=== PATIENT | male | born 1950 | race Caucasian/White ===

== ENCOUNTER → 2018-05-01 10:11 | Outpatient (CLI) | payer MEDICARE, BC, SELFPAY | PROVIDERS: PCP Nurse Practitioner Family; Visit Provider Student in an Organized Health Care Education/Training Program | DX: I48.91 Unspecified atrial fibrillation (principal) | CPT/HCPCS: 99204; 93005; 93010 ==

== ENCOUNTER → 2018-05-01 12:00 | Outpatient (CLI) | payer MEDICARE, BC, SELFPAY | PROVIDERS: PCP Nurse Practitioner Family; Referring Provider Nurse Practitioner Family; Visit Provider Student in an Organized Health Care Education/Training Program | DX: I48.2 Chronic atrial fibrillation (principal); R03.0 Elevated blood-pressure reading, without diagnosis of hypertension | CPT/HCPCS: 99204 ==

== ENCOUNTER → 2018-05-14 08:53 | Outpatient (CLI) | payer MEDICARE, BC, SELFPAY ==
--- NOTE | 2018-05-14 09:00 | MERGE_ITS ---
*[facility]* * Cardiology* [address] [place] [address] Date of study: 05/14/2018 Transthoracic Echocardiography M-mode, complete 2D, complete spectral Doppler, and color Doppler *STUDY CONCLUSIONS* Summary: 1. Left ventricle: The cavity size was normal. The estimated ejection fraction was 30%. Diffuse hypokinesis. Some parameters suggest diastolic dysfunction. There was no evidence of elevated ventricular filling pressure by Doppler parameters. No evidence of thrombus. 2. Aortic valve: There was mild regurgitation. 3. Mitral valve: There was moderate regurgitation. 4. Left atrium: The atrium was mildly dilated. 5. Right ventricle: The cavity size was normal. Wall thickness was normal. Systolic function was normal. 6. Atrial septum: No defect or patent foramen ovale was identified. 7. Tricuspid valve: There was moderate regurgitation. 8. Pulmonary arteries: Pulmonary systolic pressure was in the range of 15mm Hg to 25mm Hg. 9. Inferior vena cava: The vessel was patent and normal in size. The respirophasic diameter changes were in the normal range (greater than or equal to 50%), consistent with normal central venous pressure. *PATIENT PRESENTATION* Height: 180.3cm ((71in) ) S/D Pressure: 117 / 71 Weight: 85.3kg ((187.6lb) ) BSA: 2.08m^2 Test start time: 09:15 AM. Test stop time: 10:20 AM. PERFORMING Unknown ORDERING Jesus Arteaga REFERRING Jesus Arteaga PERFORMING [facility] SENIOR PAINTER RT Barrie (R)(CT)DARCIE *PROCEDURE DATA* Procedure information: This study was interpreted by [facility]. Pertinent images and digital data are archived for permanent storage and are available for subsequent review. No prior study was available for comparison. Study status: Routine. Transthoracic echocardiography. M-mode, complete 2D, complete spectral Doppler, and color Doppler. A Transthoracic Echocardiogram was performed. Scanning was performed from the parasternal, apical, subcostal, and suprasternal notch acoustic windows. Images were obtained using an [id number] cardiac ultrasound machine. Image quality was adequate. Study completion: The patient tolerated the procedure well. History: PMH: Afib *CARDIAC ANATOMY* Left ventricle: The cavity size was normal. The estimated ejection fraction was 30%. Diffuse hypokinesis. No evidence of thrombus. The tissue Doppler parameters were abnormal. Some parameters suggest diastolic dysfunction. There was no evidence of elevated ventricular filling pressure by Doppler parameters. Aortic valve: Trileaflet. Doppler: There was no stenosis. There was mild regurgitation. VTI ratio of LVOT to aortic valve: 0.7. Valve area (VTI): 2.5cm^2. Indexed valve area (VTI): 1.2cm^2/m^2. Peak velocity ratio of LVOT to aortic valve: 0.71. Valve area (Vmax): 2.5cm^2. Indexed valve area (Vmax): 1.2cm^2/m^2. Mean velocity ratio of LVOT to aortic valve: 0.66. Valve area (Vmean): 2.3cm^2. Indexed valve area (Vmean): 1.1cm^2/m^2. Mean gradient (S): 2.5mm Hg. Peak gradient (S): 3.7mm Hg. Aorta: Aortic root: The aortic root was normal in size. Ascending aorta: The ascending aorta was mildly dilated. Mitral valve: Doppler: There was no evidence for stenosis. There was moderate regurgitation. Valve area by pressure half-time: 3.8cm^2. Indexed valve area by pressure half-time: 1.8cm^2/m^2. Left atrium: The atrium was mildly dilated. Atrial septum: No defect or patent foramen ovale was identified. Right ventricle: The cavity size was normal. Wall thickness was normal. Systolic function was normal. Pulmonic valve: Doppler: There was no evidence for stenosis. There was mild regurgitation. Peak gradient (S): 1.2mm Hg. Tricuspid valve: Doppler: There was moderate regurgitation. Pulmonary artery: Poorly visualized. Pulmonary systolic pressure was in the range of 15mm Hg to 25mm Hg. Right atrium: The atrium was normal in size. Pericardium: There was no pericardial effusion. Systemic veins: Inferior vena cava: Well visualized. The vessel was patent and normal in size. The respirophasic diameter changes were in the normal range (greater than or equal to 50%), consistent with normal central venous pressure. Baseline ECG: Bradycardia. Measurements Left ventricle Value Reference LV ID, ED, PLAX (H) 6.1 cm 3.5 - 6.0 LV ID, ES, PLAX (H) 5.4 cm 2.1 - 4.0 LV PW thickness, ED, PLAX 1.1 cm LV end-diastolic volume, 1-p A2C 153 ml LV ejection fraction, 1-p A2C 23 % LV end-diastolic volume, 1-p A4C 160 ml LV ejection fraction, 1-p A4C 32 % LV e', lateral 0.084 m/sec LV E/e', lateral 6 LV e', medial 0.066 m/sec LV E/e', medial 8 LV e', average 0.075 m/sec LV E/e', average 7 Ventricular septum Value Reference IVS thickness, ED, PLAX 1.0 cm LVOT Value Reference LVOT ID, A-P 2.1 cm LVOT area 3.6 cm^2 LVOT peak velocity, S 0.69 m/sec LVOT mean velocity, S 0.5 m/sec LVOT VTI, S 12.8 cm LVOT peak gradient, S 1.9 mm Hg LVOT mean gradient, S 1.1 mm Hg Stroke volume (SV), LVOT DP 45 ml Stroke index (SV/bsa), LVOT DP 22 ml/m^2 Aortic valve Value Reference Aortic valve peak velocity, S 1 m/sec Aortic valve mean velocity, S 0.76 m/sec Aortic valve VTI, S 18.3 cm Aortic mean gradient, S 2.5 mm Hg Aortic peak gradient, S 3.7 mm Hg VTI ratio, LVOT/AV 0.7 Aortic valve area, VTI 2.5 cm^2 Velocity ratio, peak, LVOT/AV 0.71 Aortic valve area, peak velocity 2.5 cm^2 Velocity ratio, mean, LVOT/AV 0.66 Aortic valve area, mean velocity 2.3 cm^2 Aortic valve area/bsa, mean velocity 1.1 cm^2/m^2 Aorta Value Reference Aortic root ID, ED 3.5 cm Ascending aorta ID, A-P, S 3.9 cm RVOT Value Reference RVOT VTI, S 7.8 cm Left atrium Value Reference LA ID, A-P, ES 5.0 cm LA ID/bsa, A-P (H) 2.4 cm/m^2 <=2.2 LA area, ES, A4C (H) 26.9 cm^2 8.8 - 23.4 LA area, ES, A2C 28 cm^2 LA volume/bsa, ES, 1-p A4C 45 ml/m^2 LA volume, ES, 2-p 88 ml LA volume/bsa, ES, 2-p 42 ml/m^2 LA/aortic root ratio 1.41 Mitral valve Value Reference Mitral E-wave peak velocity 0.53 m/sec Mitral deceleration time 198 ms 150 - 230 Mitral pressure half-time 57 ms Mitral valve area, PHT, DP 3.8 cm^2 Mitral peak LV-LA gradient, S 95.6 mm Hg Mitral maximal regurg velocity, PISA 4.89 m/sec Mitral regurg VTI, PISA 186.3 cm Tricuspid valve Value Reference Tricuspid regurg peak velocity 2.1 m/sec Tricuspid peak RV-RA gradient 16.9 mm Hg Right atrium Value Reference RA area, ES, A4C 17.6 cm^2 8.3 - 19.5 Pulmonic valve Value Reference Pulmonic peak gradient, S 1.2 mm Hg Legend: (L) and (H) barry values outside specified reference range. I have personally reviewed the images and have reviewed and edited the reported findings. Electronically signed by Bashir Arthur MD 05/16/2018 16:47
== END ==
PROVIDERS: PCP Nurse Practitioner Family; Visit Provider Student in an Organized Health Care Education/Training Program
DX: I48.91 Unspecified atrial fibrillation (principal); I08.3 Combined rheumatic disorders of mitral, aortic and tricuspid valves
CPT/HCPCS: 93306

== ENCOUNTER 2018-08-12 12:29 | Outpatient (REF) | payer MEDICARE, BC, SELFPAY ==
[2018-08-12 21:10] LABS: BUN 29 mg/dL (7-18); CREATININE 1.69 mg/dL (0.70-1.30); Calcium 9.1 mg/dL (8.5-10.1); Chloride 105 mmol/L (98-107); Estimated GFR 40.44 (mL/min/1.73m2); Glucose 93 mg/dL (70-100); Potassium 4.4 mmol/L (3.5-5.1); Sodium 141 mmol/L (136-145)
[2018-08-14 11:46] LABS: Hepatitis C Ab w Rflx HCV PCR Negative (NEGAT)
== END 2018-08-12 12:49 ==
LOC: NCHCN 12:29
PROVIDERS: PCP Nurse Practitioner Family; Visit Provider Nurse Practitioner Family
DX: N18.2 Chronic kidney disease, stage 2 (mild) (principal); I48.91 Unspecified atrial fibrillation; R42 Dizziness and giddiness; I50.9 Heart failure, unspecified; Z11.59 Encounter for screening for other viral diseases
CPT/HCPCS: 80048; 86803

== ENCOUNTER 2019-02-07 10:40 | Outpatient (REF) | payer MEDICARE, BC, SELFPAY ==
[2019-02-07 13:05] LABS: Anion Gap 11.7 mmol/L (3-11); BUN 26 mg/dL (7-18); CO2 23.3 mmol/L (21.0-32.0); CREATININE 1.46 mg/dL (0.70-1.30); Calcium 8.4 mg/dL (8.5-10.1); Chloride 103 mmol/L (98-107); Estimated GFR 47.87 (mL/min/1.73m2); Glucose 87 mg/dL (70-100); Potassium 4.5 mmol/L (3.5-5.1); Sodium 138 mmol/L (136-145)
== END 2019-02-07 11:00 ==
LOC: NCHCN 10:40
PROVIDERS: PCP Nurse Practitioner Family; Visit Provider Nurse Practitioner Family
DX: I48.91 Unspecified atrial fibrillation (principal); N18.3 Chronic kidney disease, stage 3 (moderate)
CPT/HCPCS: 80048

== ENCOUNTER 2019-08-06 10:20 | Outpatient (REF) | payer MEDICARE, BC, SELFPAY ==
[2019-08-06 12:41] LABS: Anion Gap 9.3 mmol/L (3-11); BUN 28 mg/dL (7-18); CO2 24.7 mmol/L (21.0-32.0); CREATININE 1.47 mg/dL (0.70-1.30); Calcium 9.1 mg/dL (8.5-10.1); Chloride 109 mmol/L (98-107); Estimated GFR 47.36 (mL/min/1.73m2); Glucose 102 mg/dL (74-106); Potassium 4.5 mmol/L (3.5-5.1); Sodium 143 mmol/L (136-145)
== END 2019-08-06 10:40 ==
LOC: NCHCN 10:20
PROVIDERS: PCP Nurse Practitioner Family; Visit Provider Nurse Practitioner Family
DX: N18.2 Chronic kidney disease, stage 2 (mild) (principal); G60.9 Hereditary and idiopathic neuropathy, unspecified; I34.0 Nonrheumatic mitral (valve) insufficiency
CPT/HCPCS: 80048

== ENCOUNTER 2020-02-11 17:49 | Outpatient (REF) | payer MEDICARE, BC, SELFPAY ==
[2020-02-11 21:44] LABS: Anion Gap 5.1 mmol/L (3-11); BUN 21 mg/dL (7-18); CO2 28.9 mmol/L (21.0-32.0); CREATININE 1.67 mg/dL (0.70-1.30); Calcium 9.1 mg/dL (8.5-10.1); Calculated LDL 83 mg/dL (<100); Chloride 107 mmol/L (98-107); Cholesterol 139 mg/dL (<200); Estimated GFR 40.88 (mL/min/1.73m2); Glucose 106 mg/dL (74-106); HDL Cholesterol 49 mg/dL (40-60); Potassium 4.5 mmol/L (3.5-5.1); Sodium 141 mmol/L (136-145); Triglyceride 37 mg/dL (<150)
== END 2020-02-11 18:09 ==
LOC: NCHCN 17:49
PROVIDERS: PCP Nurse Practitioner Family; Visit Provider Nurse Practitioner Family
DX: N18.2 Chronic kidney disease, stage 2 (mild) (principal); R79.89 Other specified abnormal findings of blood chemistry
CPT/HCPCS: 80048; 80061

== ENCOUNTER 2020-05-21 16:20 | Outpatient (REF) | payer MEDICARE, BC, SELFPAY ==
[2020-05-21 21:39] LABS: Anion Gap 8.5 mmol/L (3-11); BUN 23 mg/dL (7-18); CO2 26.5 mmol/L (21.0-32.0); CREATININE 1.66 mg/dL (0.70-1.30); Calcium 9.3 mg/dL (8.5-10.1); Chloride 107 mmol/L (98-107); Estimated GFR 41.16 (mL/min/1.73m2); Glucose 82 mg/dL (74-106); Potassium 4.5 mmol/L (3.5-5.1); Sodium 142 mmol/L (136-145)
== END 2020-05-21 16:40 ==
LOC: NCHCN 16:20
PROVIDERS: PCP Nurse Practitioner Family; Visit Provider Nurse Practitioner Family
DX: N18.2 Chronic kidney disease, stage 2 (mild) (principal)
CPT/HCPCS: 80048

== ENCOUNTER 2021-05-17 13:10 | Outpatient (REF) | payer MEDICARE, BC, SELFPAY ==
[2021-05-17 15:03] LABS: Anion Gap 9.3 mmol/L (3-11); BUN 25 mg/dL (7-18); CO2 27.7 mmol/L (21.0-32.0); CREATININE 1.7 mg/dL (0.70-1.30); Calcium 9.3 mg/dL (8.5-10.1); Calculated LDL 99 mg/dL (<100); Chloride 107 mmol/L (98-107); Cholesterol 155 mg/dL (<200); Estimated GFR 39.93 (mL/min/1.73m2); Glucose 99 mg/dL (74-106); HDL Cholesterol 47 mg/dL (40-60); Potassium 4.8 mmol/L (3.5-5.1); Sodium 144 mmol/L (136-145); Triglyceride 45 mg/dL (<150)
== END 2021-05-17 13:11 | disposition home or self-care (01) ==
LOC: NCHCN 13:10
PROVIDERS: PCP Nurse Practitioner Family; Visit Provider Nurse Practitioner Family
DX: Z00.00 Encounter for general adult medical examination without abnormal findings (principal); N18.2 Chronic kidney disease, stage 2 (mild)
CPT/HCPCS: 80048; 80061

== ENCOUNTER 2021-06-28 00:54 | Outpatient (CLI) | payer MEDICARE, BC, SELFPAY ==
--- NOTE | 2021-06-28 | DI.US_ITS ---
APPROVED REPORT EXAM: Comprehensive 2D, Doppler, and color-flow Echocardiogram Patient Location: Out-Patient Air Conditioning Manager: Italia Hagan RDCS (AE) Indications: Tricuspid regurgitation, Mitral regurgitation, Aortic insufficiency, Atrial Fibrillation , Low EF Other Information Study Quality: Good Conclusion Mildly dilated left ventricle. Normal left ventricular wall thickness. Reduced left ventricular sys tolic function, EF 30% with global hypokinesis Mildly dilated right ventricle with normal systolic function Both atria are severely dilated Trileaflet mildly sclerotic aortic valve with trace to mild regurgitation Thickened mitral leaflets with mild to moderate regurgitation Normal tricuspid valve with mild regurgitation. Normal estimated right ventricular systolic pressure , 22.8 mmHg Moderately dilated ascending aorta measuring 4.02 cm Wall motion Left Ventricle Left ventricle is mildly dilated. Left ventricular systolic function is moderately decreased. There i s normal left ventricular wall thickness. There is global hypokinesis of the left ventricle. There is no ventricular septal defect visualized. LVEF is 30%. Right Ventricle Right ventricle is mildly dilated. The right ventricular systolic function is normal. The RVSP is 22. 8 mmHg. Atria Left atrium is severely dilated. Right atrium is severely dilated. The interatrial septum is intact w ith no evidence for an atrial septal defect. Aortic Valve The Aortic valve is mildly sclerotic. Aortic valve is trileaflet. There is no aortic valvular stenosi s. Trace to mild aortic regurgitation. Mitral Valve Mitral valve leaflets are thickened. No evidence of mitral valve stenosis. Mild to moderate mitral re gurgitation. Tricuspid Valve The tricuspid valve is normal in structure. There is no tricuspid valve stenosis. Mild tricuspid regu rgitation. Pulmonic Valve The pulmonary valve is normal in structure. There is no pulmonic valvular stenosis. Trace pulmonic re gurgitation. Great Vessels The aortic root is normal in size. The ascending aorta is moderately dilated. Aortic arch is normal i n caliber. The IVC collapses <50% with inspiration. Pericardium There is no pericardial effusion. 2D Dimensions IVSD d PLAX 0.92 cm M: 0.6-1.2 LV Vol A2C d MOD 144.3 mL LVPW d PLAX 0.93 cm M: 0.6 - 1.2 LV Vol A4C d MOD 149.7 mL LVID d PLAX 6.21 cm M: 4.2 - 5.8 LA vol/ BSA A2C s A-L 46.7 mL/m2 LVDs 5.20 cm M: 2.5 - 4.0 LA vol/ BSA A4C s A-L 40.9 mL/m2 Ao Root d 3.26 cm M: 3.1 - 3.7 LA Vol/ BSA Biplane s A-L 45.3 mL/m2 RA Area A4C 19.66 cm2 LA Area A4C s MOD 25.52 cm2 RA Vol/ BSA A4C s A-L 32.7 mL/m2 LA Area A2C s MOD 26.30 cm2 Ao Asc Diam d 4.02 cm M: 2.6 - 3.4 LV EF A4C MOD 30.1 % LV EF Teichholz 32.0 % LV EF A2C MOD 30.8 % LVEF (Sandra's) 29.67 % M: 52 - 72 LV EF Biplane MOD 29.7 % LV Volume 110.77 mL M: 62 - 150 SV 43.96 mL LV Volume Index 54.83 mL/m2 M: 34 - 74 SV Index 21.77 mL/m2 LV Vol Biplane MOD 148.2 mL FS 15.45 % M-Mode TAPSE 1.85 cm (M/F) >1.7 LV Diastology MV E' medial 0.062 (>0.07 m/s) MV E Vmax 0.76 (0.4-1.3 m/s) LV E/e MED 12.30 (<14) MV E' lateral 0.097 (>0.1 m/s) LV E/e LAT 7.85 (<14) MV E/E' medial 12.34 MV E/E' lateral 7.88 Aortic Valve LVOT Area 3.83 cm2 AoV Area Vmax 2.94 cm2 LVOT Vmax 0.90 m/s AoV Area/ BSA (Vmax) 1.45 cm2/m2 LVOT Mean Chuy. 0.64 m/s MYA Mean Chuy. 2.74 cm2 LVOT Peak Grad 3.2 mmHg MYA Mean Chuy. Index 1.35 cm2/m2 LVOT Mean Grad 1.9 mmHg AR DT 3153 msec LVOT VTI 0.186 m AR PHT 914 msec LVOT Diam s 2.20 cm AoV Vmax 1.17 m/s Velocity Ratio 0.76 AoV Mean Chuy. 0.90 m/s AoV Peak Grad 5.5 mmHg LVOT SV 71.08 mL AoV Mean Grad 3.5 mmHg AoV VTI 0.256 m AoV Area VTI 2.77 cm2 AoV Area/ BSA (VTI) 1.37 cm/m2 Mitral Valve MV DT 227 (160-240 msec) MR Vmax 4.45 m/s MV PHT 66 msec MR VTI 1.510 m MV Area PHT 3.35 cm2 MR Peak Grad 79.2 mmHg MV VTI 0.201 m MR Mean Grad 52.6 mmHg MV Area VTI 3.54 (4.0-6.0 cm2) MR PISA Radius 0.63 cm MR EROA 0.19 cm2 MR Aliasing Velocity 0.35 m/s MR PISA 2.46 cm2 Pulmonary Valve PV Vmax 0.68 (0.5-1.5 m/s) RVOT Peak Gr. 0.99 mmHg PV Peak Grad 1.8 mmHg RVOT Mean Gr. 0.45 mmHg PV Mean Grad 1.1 mmHg RVOT VTI 0.087 m PV VTI 0.144 m RVOT Vmax 0.50 m/s Tricuspid Valve TR Peak Grad 14.8 mmHg TR Vmax 1.93 m/s RA Pressure 8.00 mmHg RVSP (TR) 22.8 mmHg
== END 2021-06-28 01:14 ==
PROVIDERS: PCP Nurse Practitioner Family; Visit Provider Nurse Practitioner Family
DX: I08.3 Combined rheumatic disorders of mitral, aortic and tricuspid valves (principal); I48.91 Unspecified atrial fibrillation; I50.1 Left ventricular failure, unspecified; I77.810 Thoracic aortic ectasia
CPT/HCPCS: 93306

== ENCOUNTER 2021-08-05 12:55 | Outpatient (CLI) | payer MEDICARE, BC, SELFPAY ==
--- NOTE | 2021-08-05 13:15 | RT.EKG_ITS ---
APPROVED REPORT Exam: Resting ECG Reason for Exam: New Patient Office Visit Patient Location: O HR:93 bpm ECG Measurements Heart Rate 93 AXIS NC [id number] P [id number] QRSd 96 QRS 4 QT 377 T [id number] QTc 469 Conclusion Atrial fibrillation...V-rate 73-127, irreg A-activity Low voltage, extremity leads...all extremity leads <0.5mV
== END 2021-08-05 12:56 | disposition home or self-care (01) ==
LOC: DI.CARD 13:20
PROVIDERS: PCP Nurse Practitioner Family; Referring Provider Nurse Practitioner Family; Visit Provider Internal Medicine Cardiovascular Disease
DX: R93.1 Abnormal findings on diagnostic imaging of heart and coronary circulation (principal)
CPT/HCPCS: 93010

== ENCOUNTER → 2021-08-05 12:55 | Outpatient (BNVA) | payer MEDICARE, BC, SELFPAY | PROVIDERS: PCP Nurse Practitioner Family; Referring Provider Nurse Practitioner Family; Visit Provider Internal Medicine Cardiovascular Disease | DX: I48.21 Permanent atrial fibrillation (principal); R93.1 Abnormal findings on diagnostic imaging of heart and coronary circulation; I42.9 Cardiomyopathy, unspecified | CPT/HCPCS: 93005; 99203 ==

== ENCOUNTER → 2022-05-30 02:20 | Outpatient (CLI) | payer MEDICARE, SELFPAY ==
--- NOTE | 2022-05-30 07:45 | DI.US_ITS ---
Exam(s) US LOWER EXTREMITY VENOUS RT EXAM: US LOWER EXTREMITY VENOUS RT CLINICAL HISTORY: right leg swelling.m79.89. TECHNIQUE: Lower extremity venous ultrasound performed using grayscale, color-flow, and spectral Do ppler analysis. COMPARISON: No exams were available for comparison FINDINGS: The common femoral, femoral and popliteal veins demonstrate normal compressibility, augmentation, and color Doppler. The posterior tibial veins are patent. No saphenous vein thrombosis or other superfi cial venous thrombosis is seen. There is edema in the subcutaneous fat. There is a hypoechoic colle ction measuring 14.5 cm in length by 2.3 cm AP by 3.5 cm transverse. It extends from the popliteal f garret through the calf region. It may represent a hematoma versus Hobbs's cyst with hemorrhage or jackie ris.. IMPRESSION: Hypoechoic collection in the calf represent Hobbs's cyst versus hematoma. No evidence of DVT. DATA REPOSITORY:
== END ==
PROVIDERS: PCP Nurse Practitioner Family; Visit Provider Physician Assistant
DX: M79.89 Other specified soft tissue disorders (principal)
CPT/HCPCS: 93971

== ENCOUNTER 2022-05-30 03:50 | Outpatient (CLI) | payer MEDICARE, SELFPAY ==
[2022-05-30 14:42] LABS: Abs Immature Grans 0.02 10^3/uL (0.0-0.06); Absolute Basophil Count 0.05 10^3/uL (0.0-0.2); Absolute Lymphocyte Count 1.98 10^3/uL (1.2-3.4); Absolute Monocyte Count 1.18 10^3/uL (0.1-0.8); Absolute Neutrophil Count 6.54 10^3/uL (1.2-6.7); Basophils % 0.5; HCT 39.7 % (40.0-50.0); Immature Grans % 0.2; Lymphocytes % 20.1; MCH 31.6 pg (27.0-33.0); MCHC 32.7 % (32.0-36.0); MCV 96 fL (80-95); MPV 10.7 fL (8.0-11.0); Neutrophils % 66.2; Platelet Count 281 10^3/uL (130-400); RBC 4.12 10^6/uL (4.36-5.78); RDW 13.2 % (11.8-14.1); WBC 9.87 10^3/uL (4.4-10.8)
[2022-05-30 14:55] LABS: Prothrombin Time 10.4 sec (9.3-11.0)
[2022-05-30 15:52] LABS: ALT 23 U/L (16-63); AST 22 U/L (15-37); Albumin 2.8 g/dL (3.4-5.0); Alkaline Phosphatase 58 U/L (46-116); Anion Gap 7.5 mmol/L (3-11); BUN 30 mg/dL (7-18); Bilirubin, Total 1.3 mg/dL (0.2-1.0); CO2 27.5 mmol/L (21.0-32.0); CREATININE 1.6 mg/dL (0.70-1.30); Calcium 8.7 mg/dL (8.5-10.1); Chloride 105 mmol/L (98-107); Glucose 107 mg/dL (74-106); Potassium 4.1 mmol/L (3.5-5.1); Sodium 140 mmol/L (136-145); Total Protein 7.6 g/dL (6.4-8.2)
== END 2022-05-30 03:51 | disposition home or self-care (01) ==
LOC: LBO 03:50
PROVIDERS: PCP Nurse Practitioner Family; Visit Provider Physician Assistant
DX: M79.89 Other specified soft tissue disorders (principal)
CPT/HCPCS: 36415; 80053; 85025; 85610; 85730

== ENCOUNTER 2022-06-30 15:14 | Outpatient (REF) | payer MEDICARE, SELFPAY ==
[2022-06-30 15:42] LABS: Abs Immature Grans 0.01 10^3/uL (0.0-0.06); Absolute Basophil Count 0.03 10^3/uL (0.0-0.2); Absolute Eosinophil Count 0.25 10^3/uL (0.0-0.7); Absolute Lymphocyte Count 1.72 10^3/uL (1.2-3.4); Absolute Monocyte Count 0.37 10^3/uL (0.1-0.8); Basophils % 0.5; Eosinophils % 4.3; HCT 35.7 % (40.0-50.0); HGB 11.5 g/dL (13.5-17.5); Immature Grans % 0.2; Lymphocytes % 29.8; MCH 30.7 pg (27.0-33.0); MCHC 32.2 % (32.0-36.0); MCV 95 fL (80-95); MPV 11.9 fL (8.0-11.0); Monocytes % 6.4; Neutrophils % 58.8; Platelet Count 204 10^3/uL (130-400); RBC 3.75 10^6/uL (4.36-5.78); RDW 12.9 % (11.8-14.1); RDW-SD 45.3 fL; WBC 5.78 10^3/uL (4.4-10.8)
[2022-06-30 15:54] LABS: Anion Gap 6.4 mmol/L (3-11); BUN 30 mg/dL (7-18); CO2 25.6 mmol/L (21.0-32.0); CREATININE 1.5 mg/dL (0.70-1.30); Calcium 8.4 mg/dL (8.5-10.1); Chloride 104 mmol/L (98-107); Estimated GFR 49.16 (mL/min/1.73m2); Glucose 111 mg/dL (74-106); NT-proBNP 5383 pg/mL (<300); Potassium 4.2 mmol/L (3.5-5.1); Sodium 136 mmol/L (136-145)
== END 2022-06-30 15:15 | disposition home or self-care (01) ==
LOC: NCHCN 15:14
PROVIDERS: PCP Nurse Practitioner Family; Visit Provider Nurse Practitioner Family
DX: R06.02 Shortness of breath (principal); I42.9 Cardiomyopathy, unspecified; R60.0 Localized edema; I35.1 Nonrheumatic aortic (valve) insufficiency; I89.0 Lymphedema, not elsewhere classified; I48.91 Unspecified atrial fibrillation
CPT/HCPCS: 80048; 83880; 85025

== ENCOUNTER → 2022-07-05 01:39 | Outpatient (CLI) | payer MEDICARE, SELFPAY ==
--- NOTE | 2022-07-05 14:00 | DI.US_ITS ---
APPROVED REPORT EXAM: Comprehensive 2D, Doppler, and color-flow Echocardiogram Patient Location: Out-Patient Tacker Elastic Band: Italia Hagan RDCS (AE) Indications: SOB, CMP, Lymphedema, Dilated aorta, Murmur Other Information Study Quality: Adequate Conclusion Mildly dilated left ventricle. Normal left ventricular wall thickness. Estimated ejection fraction is 30% with global hypokinesis The right ventricle is mildly dilated. Right ventricular function appears normal Both atria are moderately dilated The aortic valve is mildly sclerotic and trileaflet with trace regurgitation Mildly thickened mitral leaflets. Moderate mitral regurgitation Normal tricuspid valve with moderate regurgitation. Estimated right ventricular systolic pressure is 24 mmHg The ascending aorta was not well visualized Compared to echocardiogram from 2020 there is no significant change Wall motion Left Ventricle Left ventricle is mildly dilated. Left ventricular systolic function is moderately decreased. There i s normal left ventricular wall thickness. There is global hypokinesis of the left ventricle. There is no ventricular septal defect visualized. LVEF is 30%. Right Ventricle Right ventricle is mildly dilated. The right ventricular systolic function is normal. Atria Left atrium is moderately dilated. Right atrium is moderately dilated. Aortic Valve The Aortic valve is sclerotic. Aortic valve is trileaflet. There is no aortic valvular stenosis. Trac e aortic regurgitation. Mitral Valve Mitral valve leaflets are thickened. No evidence of mitral valve stenosis. Moderate mitral regurgitat ion. Tricuspid Valve The tricuspid valve is normal in structure. There is no tricuspid valve stenosis. Mioderate tricuspid regurgitation. Pulmonic Valve The pulmonary valve is normal in structure. There is no pulmonic valvular stenosis. Trace pulmonic re gurgitation. Great Vessels The aortic root is normal in size. Ascending aorta is not well visualized. Aortic arch is not well vi sualized. IVC is normal in size and collapses >50% with inspiration. Pericardium There is no pericardial effusion. 2D Dimensions IVSD d PLAX 0.92 cm M: 0.6-1.2 LV Vol A2C d MOD 197.8 mL LVPW d PLAX 0.93 cm M: 0.6 - 1.2 LV Vol A4C d MOD 180.8 mL LVID d PLAX 6.22 cm M: 4.2 - 5.8 LA vol/ BSA A2C s A-L 54.9 mL/m2 LVDs 5.35 cm M: 2.5 - 4.0 LA vol/ BSA A4C s A-L 46.5 mL/m2 Ao Root d 3.40 cm M: 3.1 - 3.7 LA Vol/ BSA Biplane s A-L 53.3 mL/m2 RA Area A4C 17.77 cm2 LA Area A4C s MOD 25.51 cm2 RA Vol/ BSA A4C s A-L 28.4 mL/m2 LA Area A2C s MOD 26.27 cm2 LV EF Teichholz 28.4 % LV EF A4C MOD 30.2 % LVEF (Sandra's) 28.63 % M: 52 - 72 LV EF A2C MOD 30.9 % LV Volume 147.29 mL M: 62 - 150 LV EF Biplane MOD 28.6 % LV Volume Index 76.31 mL/m2 M: 34 - 74 SV 55.53 mL LV Vol Biplane MOD 194.0 mL SV Index 28.80 mL/m2 FS 13.55 % M-Mode TAPSE 1.84 cm (M/F) >1.7 LV Diastology MV E' lateral 0.128 (>0.1 m/s) MV E Vmax 0.99 (0.4-1.3 m/s) LV E/e LAT 7.70 (<14) MV E/E' lateral 7.72 Aortic Valve LVOT Area 3.31 cm2 AoV Area Vmax 2.31 cm2 LVOT Vmax 0.84 m/s AoV Area/ BSA (Vmax) 1.20 cm2/m2 LVOT Mean Chuy. 0.66 m/s MYA Mean Chuy. 2.33 cm2 LVOT Peak Grad 2.8 mmHg MYA Mean Chuy. Index 1.21 cm2/m2 LVOT Mean Grad 1.9 mmHg AR DT 5279 msec LVOT VTI 0.155 m AR PHT 1531 msec LVOT Diam s 2.05 cm AoV Vmax 1.20 m/s Velocity Ratio 0.70 AoV Mean Chuy. 0.93 m/s AoV Peak Grad 5.8 mmHg LVOT SV 51.25 mL AoV Mean Grad 3.7 mmHg AoV VTI 0.210 m AoV Area VTI 2.44 cm2 AoV Area/ BSA (VTI) 1.26 cm/m2 Mitral Valve MV DT 162 (160-240 msec) MR Vmax 4.23 m/s MV PHT 47 msec MR VTI 1.154 m MV Area PHT 4.70 cm2 MR Peak Grad 71.5 mmHg MV VTI 0.253 m MR Mean Grad 43.3 mmHg MV Area VTI 2.02 (4.0-6.0 cm2) Pulmonary Valve PV Vmax 0.72 (0.5-1.5 m/s) RVOT Peak Gr. 1.25 mmHg PV Peak Grad 2.1 mmHg RVOT Mean Gr. 0.55 mmHg PV Mean Grad 1.1 mmHg RVOT VTI 0.091 m PV VTI 0.112 m RVOT Vmax 0.56 m/s Tricuspid Valve TR Peak Grad 21.4 mmHg TR Vmax 2.32 m/s RA Pressure 3.00 mmHg RVSP (TR) 24.5 mmHg
== END ==
PROVIDERS: PCP Nurse Practitioner Family; Visit Provider Nurse Practitioner Family
DX: R06.02 Shortness of breath (principal); I42.9 Cardiomyopathy, unspecified; I34.0 Nonrheumatic mitral (valve) insufficiency; I35.1 Nonrheumatic aortic (valve) insufficiency; R01.1 Cardiac murmur, unspecified
CPT/HCPCS: 93306

== ENCOUNTER 2022-07-11 13:51 | Outpatient (REF) | payer MEDICARE, SELFPAY ==
[2022-07-11 17:26] LABS: Anion Gap 7.9 mmol/L (3-11); BUN 26 mg/dL (7-18); CO2 26.1 mmol/L (21.0-32.0); CREATININE 1.6 mg/dL (0.70-1.30); Chloride 104 mmol/L (98-107); Glucose 89 mg/dL (74-106); Potassium 4.4 mmol/L (3.5-5.1); Sodium 138 mmol/L (136-145)
== END 2022-07-11 13:52 | disposition home or self-care (01) ==
LOC: NCHCN 13:51
PROVIDERS: PCP Nurse Practitioner Family; Visit Provider Nurse Practitioner Family
DX: N18.2 Chronic kidney disease, stage 2 (mild) (principal); I50.9 Heart failure, unspecified; Z90.5 Acquired absence of kidney
CPT/HCPCS: 80048

== ENCOUNTER → 2022-08-04 09:23 | Outpatient (BNVA) | payer MEDICARE, SELFPAY | PROVIDERS: PCP Nurse Practitioner Family; Referring Provider Nurse Practitioner Family; Visit Provider Internal Medicine Cardiovascular Disease | DX: I48.21 Permanent atrial fibrillation (principal); I42.9 Cardiomyopathy, unspecified; Z79.01 Long term (current) use of anticoagulants | CPT/HCPCS: 99214 ==

== ENCOUNTER 2022-10-06 11:10 | Outpatient (REF) | payer MEDICARE, SELFPAY ==
[2022-10-06 14:00] LABS: Abs Immature Grans 0.02 10^3/uL (0.0-0.06); Absolute Basophil Count 0.05 10^3/uL (0.0-0.2); Absolute Eosinophil Count 0.15 10^3/uL (0.0-0.7); Absolute Lymphocyte Count 2.13 10^3/uL (1.2-3.4); Absolute Monocyte Count 0.47 10^3/uL (0.1-0.8); Absolute Neutrophil Count 3.84 10^3/uL (1.2-6.7); Basophils % 0.8; Eosinophils % 2.3; HCT 43.1 % (40.0-50.0); HGB 13.9 g/dL (13.5-17.5); Immature Grans % 0.3; MCHC 32.3 % (32.0-36.0); MCV 96 fL (80-95); Monocytes % 7.1; Neutrophils % 57.5; Platelet Count 213 10^3/uL (130-400); RBC 4.49 10^6/uL (4.36-5.78); RDW 14.3 % (11.8-14.1); RDW-SD 50.9 fL; WBC 6.66 10^3/uL (4.4-10.8)
[2022-10-06 14:25] LABS: Iron 92 ug/dL (65-175); Total Iron Binding Capacity 250 ug/dL (250-450); Transferrin Sat 37 % (20-55)
[2022-10-06 14:35] LABS: ALT 18 U/L (16-63); AST 21 U/L (15-37); Albumin 3.7 g/dL (3.4-5.0); Alkaline Phosphatase 71 U/L (46-116); Anion Gap 8.4 mmol/L (3-11); BUN 34 mg/dL (7-18); Bilirubin, Total 1.3 mg/dL (0.2-1.0); CO2 27.6 mmol/L (21.0-32.0); CREATININE 1.7 mg/dL (0.70-1.30); Calcium 9.3 mg/dL (8.5-10.1); Chloride 105 mmol/L (98-107); Estimated GFR 42.04 (mL/min/1.73m2); Ferritin 105 ng/mL (26-388); Glucose 98 mg/dL (74-106); Potassium 4.3 mmol/L (3.5-5.1); Sodium 141 mmol/L (136-145); Total Protein 7.7 g/dL (6.4-8.2)
== END 2022-10-06 11:11 | disposition home or self-care (01) ==
LOC: NCHCN 11:10
PROVIDERS: PCP Nurse Practitioner Family; Visit Provider Nurse Practitioner Family
DX: D64.9 Anemia, unspecified (principal); I48.91 Unspecified atrial fibrillation; G60.9 Hereditary and idiopathic neuropathy, unspecified; N18.2 Chronic kidney disease, stage 2 (mild); I50.9 Heart failure, unspecified
CPT/HCPCS: 80053; 82728; 83540; 83550; 85025

== ENCOUNTER 2023-04-09 15:38 | Outpatient (REF) | payer MEDICARE, SELFPAY ==
[2023-04-09 21:24] LABS: Anion Gap 10.4 mmol/L (3-11); BUN 37 mg/dL (7-18); CO2 24.6 mmol/L (21.0-32.0); CREATININE 1.8 mg/dL (0.70-1.30); Calcium 9.1 mg/dL (8.5-10.1); Chloride 107 mmol/L (98-107); Estimated GFR 39.25 (mL/min/1.73m2); Glucose 137 mg/dL (74-106); Potassium 4.2 mmol/L (3.5-5.1); Sodium 142 mmol/L (136-145)
== END 2023-04-09 15:39 | disposition home or self-care (01) ==
LOC: NCHCN 15:38
PROVIDERS: PCP Nurse Practitioner Family; Visit Provider Nurse Practitioner Family
DX: D64.9 Anemia, unspecified (principal); N18.2 Chronic kidney disease, stage 2 (mild); G60.9 Hereditary and idiopathic neuropathy, unspecified; I50.9 Heart failure, unspecified; I42.9 Cardiomyopathy, unspecified
CPT/HCPCS: 80048

== ENCOUNTER → 2023-05-03 03:19 | Outpatient (CLI) | payer MEDICARE, SELFPAY ==
--- NOTE | 2023-05-03 13:01 | DI.US_ITS ---
Exam(s) US RENAL EXAM: US RENAL CLINICAL HISTORY: CHRONIC KIDNEY DISEASE,N18.2,H/O RT NEPHRECTOMY,Z90.5. TECHNIQUE: Cox scale, color and spectral Doppler were used. COMPARISON: No exams were available for comparison FINDINGS: Renal size in cm: Right: Status post right nephrectomy. Left: 15.5 x 6 x 9 x 4.8 Echogenicity: Normal Hydronephrosis: Question of mild hydronephrosis. Cyst or mass: 4.5 centimeter cyst mid left kidney. Nephrolithiasis: No Bladder:Normal Prevoid vol:661 cc Postvoid vol:172 cc Prostate volume 53 cc. IMPRESSION: Status post right nephrectomy. Question mild left hydronephrosis. Distended urinary bladder. Elevated postvoid residual volume. Enlarged prostate. DATA REPOSITORY:
== END ==
PROVIDERS: PCP Nurse Practitioner Family; Visit Provider Nurse Practitioner Family
DX: N18.32 Chronic kidney disease, stage 3b (principal); Z90.5 Acquired absence of kidney
CPT/HCPCS: 76770

== ENCOUNTER 2023-10-11 13:47 | Outpatient (REF) | payer MEDICARE, SELFPAY ==
[2023-10-11 14:50] LABS: Abs Immature Grans 0.01 10^3/uL (0.0-0.06); Absolute Basophil Count 0.06 10^3/uL (0.0-0.2); Absolute Eosinophil Count 0.36 10^3/uL (0.0-0.7); Absolute Lymphocyte Count 2.11 10^3/uL (1.2-3.4); Absolute Monocyte Count 0.68 10^3/uL (0.1-0.8); Basophils % 0.9; Eosinophils % 5.2; HCT 45.4 % (40.0-50.0); HGB 15.1 g/dL (13.5-17.5); Immature Grans % 0.1; Lymphocytes % 30.5; MCH 31.7 pg (27.0-33.0); MCHC 33.3 % (32.0-36.0); MCV 95 fL (80-95); MPV 12.2 fL (8.0-11.0); Monocytes % 9.8; Neutrophils % 53.5; Platelet Count 212 10^3/uL (130-400); RBC 4.77 10^6/uL (4.36-5.78); RDW 13.2 % (11.8-14.1); RDW-SD 46.7 fL; WBC 6.92 10^3/uL (4.4-10.8)
[2023-10-11 15:04] LABS: Iron 128 ug/dL (65-175); Total Iron Binding Capacity 262 ug/dL (250-450); Transferrin Sat 49 % (20-55)
[2023-10-11 15:15] LABS: ALT 23 U/L (16-63); AST 21 U/L (15-37); Albumin 3.8 g/dL (3.4-5.0); Alkaline Phosphatase 75 U/L (46-116); Anion Gap 8.9 mmol/L (3-11); BUN 25 mg/dL (7-18); Bilirubin, Total 1.9 mg/dL (0.2-1.0); CO2 28.1 mmol/L (21.0-32.0); CREATININE 1.6 mg/dL (0.70-1.30); Calcium 9.5 mg/dL (8.5-10.1); Chloride 106 mmol/L (98-107); Estimated GFR 44.93 (mL/min/1.73m2); Ferritin 135 ng/mL (26-388); Glucose 109 mg/dL (74-106); Potassium 4.5 mmol/L (3.5-5.1); Sodium 143 mmol/L (136-145); Total Protein 7.9 g/dL (6.4-8.2)
== END 2023-10-11 13:48 | disposition home or self-care (01) ==
LOC: NCHCN 13:47
PROVIDERS: PCP Nurse Practitioner Family; Visit Provider Nurse Practitioner Family
DX: N18.2 Chronic kidney disease, stage 2 (mild) (principal)
CPT/HCPCS: 80053; 82728; 83540; 83550; 85025

== ENCOUNTER 2024-05-22 02:42 | Outpatient (CLI) | payer MEDICARE, SELFPAY ==
--- NOTE | 2024-05-22 | DI.US_ITS ---
Exam(s) US RENAL EXAM: US RENAL CLINICAL HISTORY: CKD stage III, N18.30. TECHNIQUE: Cox scale, color and spectral Doppler were used. COMPARISON: US US RENAL from 05/03/2023 FINDINGS: Renal size in cm: Right: Status post right nephrectomy.. Left: 11.2. Echogenicity: Normal. Hydronephrosis: There is mild dilatation of the left renal collecting system. Cyst or mass: There is again seen a simple cyst in the left kidney. It measures 5.8 x 5.3 x 4.5 cm. Nephrolithiasis: No. Other findings: None. Bladder:Normal. Ureteral jets: Right: Not visualized. Status post right nephrectomy. Left: Visualized and unremarkable. Prevoid vol:540 cc Postvoid vol:95 cc Prostate: 50 cc Renal color flow: Symmetric and within normal limits. IMPRESSION: 1. Status post right nephrectomy. 2. Mild left hydronephrosis is again seen. 3. Prostatic enlargement. 4. Small postvoid urinary bladder residual. DATA REPOSITORY:
== END 2024-05-22 03:02 ==
PROVIDERS: PCP Nurse Practitioner Family; Visit Provider Nurse Practitioner Family
DX: N18.30 Chronic kidney disease, stage 3 unspecified (principal)
CPT/HCPCS: 76770

== ENCOUNTER 2024-07-22 15:35 | Outpatient (REF) | payer MEDICARE, SELFPAY ==
[2024-07-22 14:53] LABS: Anion Gap 7.5 mmol/L (3-11); BUN 34 mg/dL (7-18); CO2 28.5 mmol/L (21.0-32.0); CREATININE 1.7 mg/dL (0.70-1.30); Calcium 9.1 mg/dL (8.5-10.1); Chloride 108 mmol/L (98-107); Estimated GFR 41.78 (mL/min/1.73m2); Glucose 79 mg/dL (74-106); Potassium 4.8 mmol/L (3.5-5.1); Sodium 144 mmol/L (136-145)
== END 2024-07-22 15:36 | disposition home or self-care (01) ==
LOC: NCHCN 15:35
PROVIDERS: PCP Nurse Practitioner Family; Visit Provider Nurse Practitioner Family
DX: N18.2 Chronic kidney disease, stage 2 (mild) (principal)
CPT/HCPCS: 80048

== ENCOUNTER → 2024-10-02 12:32 | Outpatient (BNVA) | payer MEDICARE, SELFPAY | PROVIDERS: PCP Nurse Practitioner Family; Referring Provider Nurse Practitioner Family; Visit Provider Nurse Practitioner Gerontology | DX: N40.1 Benign prostatic hyperplasia with lower urinary tract symptoms (principal); N18.9 Chronic kidney disease, unspecified; N40.0 Benign prostatic hyperplasia without lower urinary tract symptoms; N13.30 Unspecified hydronephrosis; R39.9 Unspecified symptoms and signs involving the genitourinary system | CPT/HCPCS: 51798; 99215 ==

== ENCOUNTER 2025-01-28 09:10 | Outpatient (REF) | payer MEDICARE, SELFPAY ==
[2025-01-28 18:46] LABS: ALT 22 U/L (16-63); AST 22 U/L (15-37); Albumin 3.8 g/dL (3.4-5.0); Alkaline Phosphatase 71 U/L (46-116); Anion Gap 5.6 mmol/L (3-11); BUN 21 mg/dL (7-18); Bilirubin, Total 1.8 mg/dL (0.2-1.0); CO2 28.4 mmol/L (21.0-32.0); CREATININE 1.5 mg/dL (0.70-1.30); Calcium 9.6 mg/dL (8.5-10.1); Chloride 108 mmol/L (98-107); Estimated GFR 48.25 (mL/min/1.73m2); Glucose 96 mg/dL (74-106); Potassium 4.8 mmol/L (3.5-5.1); Sodium 142 mmol/L (136-145); Total Protein 7.5 g/dL (6.4-8.2)
[2025-01-29 19:20] LABS: PSA, Screening 3.2 ng/mL (<=6.5)
== END 2025-01-28 09:11 | disposition home or self-care (01) ==
LOC: NCHCN 09:10
PROVIDERS: PCP Nurse Practitioner Family; Visit Provider Nurse Practitioner Family
DX: N40.0 Benign prostatic hyperplasia without lower urinary tract symptoms (principal); Z12.5 Encounter for screening for malignant neoplasm of prostate
CPT/HCPCS: 80053; 84153

== ENCOUNTER 2025-03-25 03:13 | Outpatient (CLI) | payer MEDICARE, SELFPAY ==
--- NOTE | 2025-03-25 07:00 | DI.US_ITS ---
Exam(s) US RENAL EXAM: US RENAL CLINICAL HISTORY: monitoring hydronephrosis,Single kidney. TECHNIQUE: Cox scale imaging and color doppler were used. COMPARISON: US US RENAL from 05/03/2023 US US RENAL from 05/22/2024 FINDINGS: Right kidney: Surgically absent Left kidney: 13.0 x 5.5 x 6.5cm Echogenicity: Normal Hydronephrosis: No Cyst or mass: Multiple cysts. The largest is near the lower pole measuring 5.7 x 4.4 x 5 0.8 cm. No suspicious features. Nephrolithiasis: No Bladder:Normal. Left ureteral jet was visualized. Prevoid vol:305 cc Postvoid vol: 118 cc Enlarged prostate with volume 61 cc. Impresses on the base of the bladder. IMPRESSION: Right nephrectomy. Evidence of hydronephrosis. Left renal cysts. No evidence of hydronephrosis. DATA REPOSITORY:
== END 2025-03-25 03:33 ==
LOC: DI 03:13
PROVIDERS: PCP Nurse Practitioner Family; Visit Provider Nurse Practitioner Gerontology
DX: N18.9 Chronic kidney disease, unspecified (principal); N40.0 Benign prostatic hyperplasia without lower urinary tract symptoms; N13.30 Unspecified hydronephrosis
CPT/HCPCS: 76770

== ENCOUNTER → 2025-04-02 14:23 | Outpatient (BNVA) | payer MEDICARE, SELFPAY | PROVIDERS: PCP Nurse Practitioner Family; Referring Provider Nurse Practitioner Family; Visit Provider Nurse Practitioner Gerontology | DX: N18.9 Chronic kidney disease, unspecified (principal); N40.0 Benign prostatic hyperplasia without lower urinary tract symptoms; N13.30 Unspecified hydronephrosis; Z90.5 Acquired absence of kidney | CPT/HCPCS: 99214 ==